=== PATIENT | male | born 1985 | race Caucasian/White ===

== ENCOUNTER 2020-09-22 03:40 | Emergency (ER) | payer BC ==
[2020-09-22] MEDS ORDERED: Bacitracin Oint 1 GM U/D Packet TOP ONE (04:12)
--- NOTE | 2020-09-22 04:12 | EDM.PDOC ---
ED HPI GENERAL MEDICAL PROBLEM - General Chief Complaint: Head Injury Stated Complaint: CUT HEAD Time Seen by Provider: 09/22/20 04:00 Source of Information: Reports: Patient, Family History Limitations: Reports: Intoxication - History of Present Illness INITIAL COMMENTS - FREE TEXT/NARRATIVE: Krish is a 34-year-old male presenting to the ED for evaluation of head injury after falling down 5 steps striking his head. It is unclear whether there was any loss of consciousness. The injury occurred about an hour prior to arrival. Patient is intoxicated. He has been drinking beer and [employer]. He has a sizable hematoma in the left parieto-occipital region with a 4 cm laceration to the scalp. Patient's last tetanus was in 2012 so we will booster him today. - Related Data Allergies Allergy/AdvReac Type Severity Reaction Status Date / Time No Known Allergies Allergy Verified 09/22/20 03:53 Home Meds: Home Meds NK [No Known Home Meds] 09/22/20 [History] Past Medical History - Past Health History Medical/Surgical History: Denies Medical/Surgical History Musculoskeletal History: Reports: Fracture Other Musculoskeletal History: collarbone Social & Family History - Tobacco Use Tobacco Use Status *Q: Current Every Day Tobacco User Years of Tobacco use: 15 Packs/Tins Daily: 0.2 Used Tobacco, but Quit: No - Caffeine Use Caffeine Use: Reports: Soda - Alcohol Use Days Per Week of Alcohol Use: 1 Number of Drinks Per Day: 5 Total Drinks Per Week: 5 Date of Last Drink: 09/22/20 - Recreational Drug Use Recreational Drug Use: No ED ROS GENERAL - Review of Systems Review Of Systems: See Below Constitutional: Reports: No Symptoms HEENT: Reports: Other (Scalp laceration and hematoma) Respiratory: Reports: No Symptoms Cardiovascular: Reports: No Symptoms Endocrine: Reports: No Symptoms GI/Abdominal: Reports: No Symptoms : Reports: No Symptoms Musculoskeletal: Reports: No Symptoms Skin: Reports: No Symptoms Neurological: Reports: No Symptoms Psychiatric: Reports: No Symptoms Hematologic/Lymphatic: Reports: No Symptoms Immunologic: Reports: No Symptoms ED EXAM, HEAD INJURY - Physical Exam Exam: See Below Exam Limited By: No Limitations General Appearance: Alert, No Apparent Distress, Other (Patient is intoxicated) Head: Normocephalic, Scalp Lacerations (4 cm scalp laceration from the left parietal to top of the left occiput), Scalp Swelling (Left parietal occipital hematoma measuring approximately 6 cm), Scalp Hematoma, Active Bleeding (Mild bleeding from a gaping laceration) Nexus Criteria: Evidence of Intoxication Eyes: Bilateral Eye: EOMI, PERRL Ears: Normal TMs Nose: Normal Inspection Throat/Mouth: Normal Inspection, Normal Oropharynx, Normal Voice, No Airway Compromise Neck: Non-Tender, Full Range of Motion Respiratory: No Respiratory Distress, Lungs Clear, Normal Breath Sounds Cardiovascular: Normal Peripheral Pulses, Regular Rate, Rhythm, No Murmur GI/Abdominal Exam: Normal Bowel Sounds, Soft, Non-Tender Extremities: Normal Inspection Neurologic: joint special operations II-XII nml As Tested, No Motor/Sensory Deficits, Alert, Normal Mood/Affect, Oriented x 3 Skin: Normal Color - Linda Coma Score Best Eye Response (Linda): (4) Open Spontaneously Best Verbal Response (Linda): (5) Oriented Best Motor Response (Linda): (6) Obeys Commands Linda Total: 15 ED LACERATION/WOUND & CAROLINE PROC - Laceration/Wound Repair Left Posterior Head Lac/wound length in cm: 4.0 Appearance: Subcutaneous, Linear Distal NVT: Neuro & Vascular Intact Exploration/Debridement/Repair: Wound Explored, No Foreign Material Found Closed with: [place] # of Sutures: 7 Sterile Dressing Applied: Nurse Tetanus Status Addressed: Yes Complications: No Course - Vital Signs Last Recorded V/S: Last Vital Signs Temp 36.8 C 09/22/20 03:58 Pulse 99 09/22/20 03:58 Resp 18 09/22/20 03:58 BP 152/96 H 09/22/20 03:58 Pulse Ox 98 09/22/20 03:58 - Orders/Labs/Meds Orders: Active Orders 24 hr Category Date Time Status Cervical Spine wo Cont [CT] Stat Exams 09/22/20 04:00 Ordered Head wo Cont [CT] Stat Exams 09/22/20 04:00 Ordered CBC WITH AUTO DIFF [HEME] Stat Lab 09/22/20 04:00 Ordered COMPREHENSIVE METABOLIC PN,CMP [CHEM] Stat Lab 09/22/20 04:00 Ordered ETHANOL BLOOD MEDICAL [CHEM] Stat Lab 09/22/20 04:00 Ordered - Radiology Interpretation Free Text/Narrative:: I reviewed the CT of the head without contrast. There is no evidence for acute intracranial bleed, mass, or midline shift. There is no evidence for cranial abnormality. There is a sizable scalp hematoma over the left parietal occipital region. Air is seen contained within the hematoma vasyl are seen over this region as well. I reviewed the CT of the cervical spine without contrast demonstrating normal cervical architecture without evidence for prevertebral swelling or malalignment. There is no evidence for acute fracture. There is loss of lordosis due to muscle spasm in the cervical spine. - Re-Assessments/Exams Free Text/Narrative Re-Assessment/Exam: 09/22/20 06:19 I reviewed the patient's labs showing a normal CBC and comprehensive metabolic panel with the exception of a widened anion gap secondary to ethanol. The ethanol level is 340. I reviewed the CT of the head and cervical spine showing no acute abnormalities with the exception of a large scalp hematoma containing air over the left parietal occipital region. Vasyl are seen overlying this region from the scalp repair. There is no evidence for intracranial abnormality or skull fracture. There is no abnormalities of the cervical spine except for loss of lordosis due to muscle spasm and degenerative disease with spondylolisthesis at multiple levels. The patient should be suitable for discharge home in satisfactory condition. He likely has sustained a significant concussion due to his fall down the stairs. Vasyl will need to be removed in 7 days which can be done at his primary provider's office. Dictation to return to the ED were discussed with the patient. Departure - Departure Time of Disposition: 06:20 Disposition: Home, Self-Care 01 Clinical Impression: Concussion with no loss of consciousness, Scalp laceration, Hematoma - Discharge Information Instructions: Concussion, Adult, Facial or Scalp Contusion, [id number], Laceration Care, Adult, [id number] Referrals: PCP,None [Primary Care Provider] - Care Plan Goals: You have sustained a sizable hematoma (collection of blood under the skin) over the back on the left side of your head. I will take several days to a week for this to reabsorb. This area may be quite tender during that time. You also had a sizable 4 cm laceration that was closed using vasyl. These will need to be removed in 7 days which can be done at your local clinic. I would apply a light coating of triple antibiotic ointment over the laceration twice daily. Please be careful when shampooing your hair as to not snag or catch any of the vasyl which can cause additional pain. You may experience some light bleeding from the site until the scab forms. You likely sustained a mild concussion from striking your head on the ground. This will be evidenced by a headache once you start to sober up. The headache is a result of some mild swelling of the brain. I instructed you to rest until the headache subsides. Avoid any contact sports or anything that could cause reinjury of your head. You may take Tylenol for your headache. Sepsis Event Note (ED) - Evaluation Sepsis Screening Result: No Definite Risk - Focused Exam Vital Signs: Vital Signs Temp Pulse Resp BP Pulse Ox 09/22/20 03:58 36.8 C 99 18 152/96 H 98 - My Orders Last 24 Hours: My Active Orders 09/22/20 04:00 Cervical Spine wo Cont [CT] Stat Head wo Cont [CT] Stat CBC WITH AUTO DIFF [HEME] Stat COMPREHENSIVE METABOLIC PN,CMP [CHEM] Stat ETHANOL BLOOD MEDICAL [CHEM] Stat - Assessment/Plan Last 24 Hours: My Active Orders 09/22/20 04:00 Cervical Spine wo Cont [CT] Stat Head wo Cont [CT] Stat CBC WITH AUTO DIFF [HEME] Stat COMPREHENSIVE METABOLIC PN,CMP [CHEM] Stat ETHANOL BLOOD MEDICAL [CHEM] Stat
[2020-09-22] MEDS ORDERED: Diphtheria,Pertussis(Acell),Tetanus Vaccine 0.5 ML Syringe IM ONE (04:14)
--- NOTE | 2020-09-22 05:50 | CRLCT ---
INDICATION: Injury TECHNIQUE: CT head without contrast. COMPARISON: None available FINDINGS: There is cerebral cortical volume loss for age. The ventricles are within normal limits. There is no mass effect or midline shift. There is no loss of child-white differentiation. There is no evidence of gross acute intracranial hemorrhage. No acute calvarial fracture is seen. There is a posterior left parietal scalp hematoma and laceration with overlying skin mani. 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 Foci of mild mucosal thickening are seen in the right ethmoid sinus and right frontal sinus inferior recess. The mastoid air cells are clear. The visualized orbits are within normal limits. IMPRESSION: No evidence of a gross acute intracranial hemorrhage, mass effect or loss of child-white differentiation. A left parietal scalp hematoma and laceration. Mild cortical volume loss for age. Dictated by Neno Bang MD @ 09/22/2020 5:49:13 AM Please note that all CT scans at this facility use dose modulation, iterative reconstruction, and/or weight-based dosing when appropriate to reduce radiation dose to as low as reasonably achievable. Dictated by: Neno Bang MD @ 09/22/2020 05:49:19 (Electronically Signed)
--- NOTE | 2020-09-22 06:17 | CRLCT ---
Indication: Fell downstairs head laceration Technique: Volumetric multidetector CT images of the cervical spine were obtained without the administration of IV contrast. Comparison: None available. Findings: The cervical vertebral body heights are grossly maintained. There is moderate reversal of the normal cervical lordosis. There is minimal anterolisthesis of C5 on C6. There is no displaced fracture or dislocation. There is moderate to severe degenerative disc disease with disc height loss and marginal osteophyte formation worst at the C5-C6 level. The facets are aligned with moderate facet arthrosis. The paraspinous soft tissues are grossly within normal limits. Impression: Moderate degenerative changes and marked spasmodic reversal of the normal cervical lordosis without evidence of displaced fracture. Please note that all CT scans at this facility use dose modulation, iterative reconstruction, and/or weight-based dosing when appropriate to reduce radiation dose to as low as reasonably achievable. Dictated by Dirk Rivera MD @ 09/22/2020 6:15:[address] Dirk Rivera @ Sep 22 2020 6:15AM
== END 2020-09-22 06:24 | disposition home or self-care (01) ==
LOC: JP.ED 03:40
DX: S06.0X0A Concussion without loss of consciousness, initial encounter (principal); S01.01XA Laceration without foreign body of scalp, initial encounter; Z72.0 Tobacco use; Z23 Encounter for immunization; W10.9XXA Fall (on) (from) unspecified stairs and steps, initial encounter; W18.09XA Striking against other object with subsequent fall, initial encounter
CPT/HCPCS: 12002; 36415; 70450; 72125; 80053; 80307; 85025; 90471; 90715; 99283; 99283-25